=== PATIENT | male | born 1975 | race Caucasian/White ===

== ENCOUNTER 2016-12-11 13:39 | Observation (INO) ==
[2016-12-11] MEDS ORDERED: ASPIRIN PO STA (13:43)
[2016-12-11] MEDS ORDERED: ASPIRIN ONE (13:47)
[2016-12-11 13:58] LABS: MANUAL DIFF NEEDED? NO
--- NOTE | 2016-12-11 14:02 | EKG Report ---
Test Performed on : 12/11/2016 1:45:22 PM Test Reason : CHEST PAIN Blood Pressure : / mmHG Vent. Rate : 081 BPM Atrial Rate : 081 BPM P-R Int : 176 ms QRS Dur : 086 ms QT Int : 376 ms P-R-T Axes : 068 042 063 degrees QTc Int : 436 ms Normal sinus rhythm. Normal ECG When compared with ECG of 01-JUN-2012 10:31, ST no longer elevated in Inferior leads ST no longer elevated in Lateral leads Unconfirmed Result
[2016-12-11 14:06] LABS: BASO% 0.2 % (0.0-0.8); EOS# 0.26 X1000 (0.0-0.7); EOS% 2.9 % (0.0-10.0); HEMATOCRIT 43.3 % (42.0-52.0); HEMOGLOBIN 15.3 g/dL (14.0-18.0); IMM GRAN# 0.03 X1000 (0.0-0.04); IMM GRAN% 0.3 % (0.0-0.5); LYMPH# 3.12 X1000 (1.2-3.4); LYMPH% 35.1 % (20.5-51.1); MCH 29.8 PG (27-31); MCHC 35.3 g/dL (33-37); MCV 84.4 FL (81-99); MONO# 0.55 X1000 (0.11-0.59); MONO% 6.2 % (1.7-9.3); NEUT% 55.3 % (42.2-75.2); PLT 271 X1000 (130-400); RBC 5.13 XMIL (4.7-6.1)
[2016-12-11 14:17] LABS: AGAP 11; ALBUMIN 4.3 g/dL (3.5-5.0); ALKALINE PHOSPHATASE 73 U/L (32-122); BUN 10 mg/dL (8-22); CHLORIDE 100 mmol/L (98-107); CK PROFILE 114 U/L (24-204); COSMO 280; GOT 27 U/L (10-34); GPT 37 U/L (10-44); POTASSIUM 3.7 mmol/L (3.5-5.1); SODIUM 138 mmol/L (136-145); TCO2 27 mmol/L (25-35); TOTAL PROTEIN 7.3 g/dL (6.3-8.3)
[2016-12-11 14:26] LABS: INR 0.97 (0.86-1.15); PROTIME 13.2 Seconds (12.1-15.5)
[2016-12-11 14:27] LABS: PTT PL 27.5 Seconds (22.6-43.9)
--- NOTE | 2016-12-11 14:59 | Diag Imaging Result Document ---
PROCEDURE NAME: CHEST-2 VIEWS - 12/11/2016 CHEST X-RAY 2 VIEWS: COMPARISON: 06/01/2012. FINDINGS: Lung volumes are still rather low. No focal infiltrates, pneumothorax, or pleural effusion. IMPRESSION: No acute disease.
[2016-12-11 15:09] LABS: UR AMPHETAMINES QUAL NONE DETECTED (NONE DETECT); UR BARBITUATES QUAL NONE DETECTED (NONE DETECT); UR BENZODIAZEPIN QUAL NONE DETECTED (NONE DETECT); UR CANNABINOIDS QUAL NONE DETECTED (NONE DETECT); UR COCAINE QUAL NONE DETECTED (NONE DETECT); UR MDMA QUAL NONE DETECTED (NONE DETECT); UR METHADONE QUAL NONE DETECTED (NONE DETECT); UR METHAMPHETAMINE QUAL NONE DETECTED (NONE DETECT); UR OPIATES QUAL NONE DETECTED (NONE DETECT); UR OXYCODONE QUAL NONE DETECTED (NONE DETECT); UR PCP QUAL NONE DETECTED (NONE DETECT); UR TCA QUAL NONE DETECTED (NONE DETECT)
[2016-12-11 15:12] LABS: BILIRUBIN URINE NEGATIVE (NEGATIVE); BLOOD URINE NEGATIVE (NEGATIVE); CLARITY CLEAR (CLEAR); COLOR YELLOW; LEUKOCYTES URINE TRACE (NEGATIVE); NITRITE URINE NEGATIVE (NEGATIVE); PH URINE 6.5; PROTEIN URINE TRACE mg/dL (NEGATIVE); UROBILINOGEN URINE 4+(12 mg/dL)
[2016-12-11 15:13] LABS: URINE CULTURE PL NEEDED? YES; URINE EPITHELIAL CELLS <10 /HPF (<10); URINE SOURCE CLEAN CATCH; URINE WBC <10 /HPF (<10)
[2016-12-11] MEDS ORDERED: ZOFRAN IV ONE (16:03)
[2016-12-11] MEDS ORDERED: MORPHINE IV ONE (16:03)
--- NOTE | 2016-12-11 16:51 | Diag Imaging Result Document ---
PROCEDURE NAME: ANGIOGRAM/PULMONARY ARTERIES - 12/11/2016 CT PULMONARY ANGIOGRAM WITH INTRAVENOUS CONTRAST: A CT dose reduction protocol was used. COMPARISON: 06/01/12 FINDINGS: Axial CT images of the chest were obtained after administering intravenous contrast. Coronal MIP images were generated. There is no pulmonary embolism. There is a small 7 mm left upper lobe pulmonary nodule. Otherwise, the lungs are clear. Heart size is normal with no pericardial effusion. There is diffuse fatty change of the liver. Bony structures are intact. IMPRESSION: 1. Negative for pulmonary embolism. 2. Fatty liver. 3. Small left upper lobe pulmonary nodule. [facility]
--- NOTE | 2016-12-11 17:23 | PROVIDER DOCUMENTATION ---
This chart was entered by Cari Dorsey Scribe, acting as scribe for Flaquita Landin MD. HPI-Chest Pain - General Source: patient, family - History of Present Illness-CP Location: reports: other (l side) Chest Pain Radiation: reports: no radiation Quality of Pain: reports: pressure Severity in ED: mild Onset/Duration: 1-3 hours ago (2 hrs) Timing: still present, intermittent Context/Activities at Onset: reports: light activity Modifying Factors: improves with: nothing Associated Symptoms: reports: shortness of breath. denies: abdominal pain, back pain, diaphoresis, dizziness, edema, fatigue, fever/chills, headache, heartburn, nausea, rash, swelling/lump in chest, syncope, vomiting, weakness Nitro Today/Relief: no nitro taken today Aspirin Treatment Today: no aspirin today Prior Chest Pain/Cardiac Workup: reports: no prior chest pain, no prior cardiac workup Similar Symptoms Previously?: No Recently Seen Here or By Another Healthcare Provider: No <Flaquita Landin - Last Filed: 12/11/16 17:23> - General Source: patient, family - History of Present Illness-CP Location: reports: other (l side) Chest Pain Radiation: reports: no radiation Quality of Pain: reports: pressure Severity in ED: mild Onset/Duration: 1-3 hours ago Timing: still present, intermittent Context/Activities at Onset: reports: light activity Modifying Factors: improves with: nothing Associated Symptoms: reports: shortness of breath. denies: abdominal pain, back pain, diaphoresis, dizziness, edema, fatigue, fever/chills, headache, heartburn, nausea, rash, swelling/lump in chest, syncope, vomiting, weakness Nitro Today/Relief: no nitro taken today Aspirin Treatment Today: no aspirin today Prior Chest Pain/Cardiac Workup: reports: no prior chest pain, no prior cardiac workup Similar Symptoms Previously?: No Recently Seen Here or By Another Healthcare Provider: No <David Payton - Last Filed: 12/11/16 22:58> - General Chief Complaint: Chest Pain Stated Complaint: CHEST PAIN Time Seen by Provider: 12/11/16 14:14 Allergies/Adverse Reactions: Patient Allergies Allergy/AdvReac Type Severity Reaction Status Date / Time No Known Allergies Allergy Verified 11/17/13 13:17 Home Medications: Home Medication List Medication Instructions Recorded Confirmed Last Taken Type No Home Medications 06/01/12 11/17/13 Unknown History - History of Present Illness-CP Nature of Presenting Problem: Pt is 41 y/o M presents to the ED with L side chest pain. Pt states pain started 2 hrs ago. Pt states SOB. Pt states one prior episode of chest pain before that was diagnosed as pericarditis. Pt denies injury. (Cari Dorsey) Pt is 41 y/o M presents to the ED with L side chest pain. Pt states pain started 2 hrs ago. Pt states SOB. Pt states one prior episode of chest pain before that was diagnosed as pericarditis. Pt denies injury. (Flaquita Landin) Review of Systems - Adult - REVIEW OF SYSTEMS - ADULT Constitutional: reports: no symptoms reported Eyes: reports: no symptoms reported Ears, Nose, Mouth & Throat: reports: no symptoms reported Cardiovascular: reports: chest pain (l side). denies: heart murmur, irregular heart rate, orthopnea Respiratory: reports: cough, shortness of breath. denies: wheezing Gastrointestinal: reports: no symptoms reported Genitourinary: reports: no symptoms reported Musculoskeletal: reports: no symptoms reported Integumentary: reports: no symptoms reported Neurological: reports: no symptoms reported Psychiatric: reports: no symptoms reported Endocrine: reports: no symptoms reported Hematologic/Lymphatic: reports: no symptoms reported Allergic/Immunologic: reports: no symptoms reported All Other Systems: Reviewed and Negative <Flaquita Landin - Last Filed: 12/11/16 17:23> - REVIEW OF SYSTEMS - ADULT Constitutional: denies: chills, fever Eyes: reports: no symptoms reported Ears, Nose, Mouth & Throat: reports: no symptoms reported Cardiovascular: reports: chest pain (l side). denies: heart murmur, irregular heart rate, orthopnea Respiratory: reports: cough, shortness of breath. denies: wheezing Gastrointestinal: reports: no symptoms reported Genitourinary: reports: no symptoms reported Musculoskeletal: reports: no symptoms reported Integumentary: reports: no symptoms reported Neurological: reports: no symptoms reported Psychiatric: reports: no symptoms reported Endocrine: reports: no symptoms reported Hematologic/Lymphatic: reports: no symptoms reported Allergic/Immunologic: reports: no symptoms reported All Other Systems: Reviewed and Negative <David Payton - Last Filed: 12/11/16 22:58> Past History - Adult - PAST MEDICAL HISTORY-ADULT Review of Records: reports: Nursing Assessment Review, Medications Reviewed, Social history reviewed & non-contributory. Major Childhood Illnesses: reports: denies history Cardiovascular: reports: denies history Respiratory: reports: denies history Gastrointestinal: reports: denies history Obstetrical/Gynecological: reports: denies history Genitourinary: reports: denies history Musculoskeletal: reports: denies history Neurological: reports: denies history Psychiatric: reports: denies history Endocrine/Immune: reports: denies history Other Conditions: reports: denies history - PRIOR SURGERIES/PROCEDURES Surgical/Procedure History: reports: hernia repair - PRIOR HOSPITALIZATIONS Prior Hospitalizations: reports: none - IMMUNIZATION STATUS Childhood Immunizations: See Nurse Assessment Flu Vaccine: See Nurse Assessment - FAMILY HISTORY Family History: reviewed, not pertinent - SOCIAL HISTORY Smoking: less than 1 pack/day, other (dip) Provider spent 3-5 mins advising pt. on dangers of tobacco.: Discussed manners to quit use, and f/u contacts for add'l counseling. Substance Use: denies Living Situation: family <Flaquita Landin - Last Filed: 12/11/16 17:23> - PAST MEDICAL HISTORY-ADULT Review of Records: reports: Old Records Reviewed, Nursing Assessment Review, Medications Reviewed, Social history reviewed & non-contributory. - SOCIAL HISTORY Smoking: non-smoker Substance Use: denies Living Situation: family <David Payton - Last Filed: 12/11/16 22:58> Physical Exam-General - PHYSICAL EXAM-ADULT Initial Vital Signs Reviewed: Yes - CONSTITUTIONAL General Appearance: appears well, alert, no apparent distress - EYES Eyes: PERRL/EOMI, pink conjunctivae - HEAD, EARS, NOSE, MOUTH & THROAT HENMT: normocephalic/atraumatic, moist mucous membranes, normal ENT inspection, TMs normal, pharynx normal - NECK Neck: non-tender, full range of motion, supple, normal inspection - RESPIRATORY Respiratory: chest non-tender, lungs clear, normal breath sounds, no pleuratic chest pain, no respiratory distress, no accessory muscle use - CARDIOVASCULAR Cardiovascular: normal peripheral pulses, regular rate, rhythm, no edema, no gallop, no JVD, no murmur - GASTROINTESTINAL (ABDOMEN) Abdominal Exam: normal bowel sounds, non tender, soft, no organomegaly, no pulsatile mass - LYMPHATIC Lymphatic: no adenopathy - MUSCULOSKELETAL Back Exam: normal inspection, no CVA tenderness, no vertebral tenderness Extremity: normal range of motion, non-tender, normal gait, normal inspection, no pedal edema, no calf tenderness, normal capillary refill, pelvis stable - SKIN Integumentary: normal color, normal turgor, warm/dry - NEUROLOGIC Neurologic: grossly normal - PSYCHIATRIC Psych/Mental Status: normal mood/affect, oriented x 3 <Flaquita Landin X - Last Filed: 12/11/16 17:23> - PHYSICAL EXAM-ADULT Initial Vital Signs Reviewed: Yes - CONSTITUTIONAL General Appearance: appears well, alert, no apparent distress - EYES Eyes: PERRL/EOMI, pink conjunctivae - HEAD, EARS, NOSE, MOUTH & THROAT HENMT: normocephalic/atraumatic, moist mucous membranes, normal ENT inspection, TMs normal, pharynx normal - NECK Neck: non-tender, full range of motion, supple, normal inspection - RESPIRATORY Respiratory: chest non-tender, lungs clear, normal breath sounds, no pleuratic chest pain, no respiratory distress, no accessory muscle use - CARDIOVASCULAR Cardiovascular: normal peripheral pulses, regular rate, rhythm, no edema, no gallop, no JVD, no murmur - GASTROINTESTINAL (ABDOMEN) Abdominal Exam: normal bowel sounds, non tender, soft, no organomegaly, no pulsatile mass - LYMPHATIC Lymphatic: no adenopathy - MUSCULOSKELETAL Back Exam: normal inspection, no CVA tenderness, no vertebral tenderness Extremity: normal range of motion, non-tender, normal gait, normal inspection, no calf tenderness, normal capillary refill, pelvis stable - SKIN Integumentary: normal color, normal turgor, warm/dry - NEUROLOGIC Neurologic: grossly normal - PSYCHIATRIC Psych/Mental Status: normal mood/affect, oriented x 3 <David Payton - Last Filed: 12/11/16 22:58> Progress - PLAN OF CARE/RESULTS Result Diagrams: 12/11/16 13:51 12/11/16 13:51 - REASSESSMENT Reassessment #1 Time Reassessed: 17:21 Status: improving (Pt reports his pain is better, but still 6/10 when breaths and 3/10 when not breathing. Declined admission, agress to do 3rd set Trop. Care will be turned over to Dr. Payton at 6P.) - EKG 1 Time of EKG reading by physician:: 13:45 EKG Read and Signed by:: Flaquita Landin EKG Interpretation (*Must complete 3 of following elements*): Normal Rate: 81 Rhythm: normal sinus rhythm Comments: normal ECG - XRAY 1 XRAY: Bilateral XRAY Study: Chest Impression: Normal XRAY Interpretation: no acute disease - CT/MRI 1 CT Study: Angiogram Impression: Normal CT Results: NAD; fatty liver - CHANGE OF SHIFT REPORT (ED Provider) Report Given and Care Transferred to:: Dr. Payton Time of Transfer: 18:00 Items Pending: Labs, Other (Dispo) <Flaquita Landin - Last Filed: 12/11/16 17:23> - PLAN OF CARE/RESULTS Result Diagrams: 12/11/16 13:51 12/11/16 13:51 - CONSULTS/PCP/HOSPITALIST Notification #1 *Consult/PCP/Hospitalist*: penot Time Discussed: 22:54 Consult Disposition: Admit (accept) <David Payton - Last Filed: 12/11/16 22:58> - PLAN OF CARE/RESULTS Progress/Plan/Lab Results: Vital Signs - 8 hr 12/11/16 15:15 12/11/16 15:44 12/11/16 16:00 Temperature Pulse Rate 62 66 63 Respiratory Rate 21 21 24 Blood Pressure 161/110 150/108 140/97 O2 Sat by Pulse Oximetry 96 97 95 12/11/16 16:35 12/11/16 17:38 12/11/16 18:52 Temperature Pulse Rate 60 60 52 L Respiratory Rate 19 16 13 Blood Pressure 140/107 129/96 131/93 O2 Sat by Pulse Oximetry 95 96 95 12/11/16 19:50 12/11/16 20:14 12/11/16 20:55 Temperature Pulse Rate 58 L 53 L 52 L Respiratory Rate 16 17 13 Blood Pressure 146/99 133/96 120/88 O2 Sat by Pulse Oximetry 97 98 98 12/11/16 21:33 Temperature 97.2 F L Pulse Rate 52 L Respiratory Rate 18 Blood Pressure 131/81 O2 Sat by Pulse Oximetry 97 Laboratory Results - last 24 hr 12/11/16 12/11/16 12/11/16 13:51 13:51 13:51 WBC RBC Hgb Hct MCV MCH MCHC RDW Std Deviation Plt Count MPV Immature Gran % (Auto) Neut % (Auto) Lymph % (Auto) [place] % (Auto) Eos % (Auto) Baso % (Auto) Immature Gran # (Auto) Neut # (Auto) Lymph # (Auto) Monroe # (Auto) Eos # (Auto) Baso # (Auto) ESR PT INR APTT (Factor Assay) D-Dimer Sodium 138 Potassium 3.7 Chloride 100 Carbon Dioxide 27 Anion Gap 11 BUN 10 Creatinine 0.9 Estimated GFR/1.73 m2 > 60 BUN/Creatinine Ratio 11 Glucose 192 H Calculated Osmolality 280 Calcium 9.0 Magnesium 2.0 Total Bilirubin 1.00 AST 27 ALT 37 Alkaline Phosphatase 73 Creatine Kinase 114 Troponin T < 0.010 C-Reactive Prot, Quant Cww-W-Woxnrfxqrcz Pept 11 Total Protein 7.3 Albumin 4.3 Globulin 3.0 Albumin/Globulin Ratio 1.0 Amylase Lipase Urine Source Urine Color Urine Clarity Urine pH Ur Specific [place] Urine Protein Urine Ketones Urine Blood Urine Nitrite Urine Bilirubin Urine Urobilinogen Urine WBC Urine Microscopic WBC Ur Epithelial Cells Urine Bacteria Urine Glucose Urine Opiates Screen Ur Oxycodone Screen Urine Methadone Screen Ur Barbituates Screen Ur Tricyclics Screen Ur Phencyclidine Scrn Ur Amphetamines Screen U Methamphetamines Scrn Urine MDMA Screen U Benzodiazepines Scrn Urine Cocaine Screen U Cannabinoids Screen 12/11/16 12/11/16 12/11/16 13:51 13:51 14:51 WBC 8.89 RBC 5.13 Hgb 15.3 Hct 43.3 MCV 84.4 MCH 29.8 MCHC 35.3 RDW Std Deviation 13.5 Plt Count 271 MPV 10.0 Immature Gran % (Auto) 0.3 Neut % (Auto) 55.3 Lymph % (Auto) 35.1 Monroe % (Auto) 6.2 Eos % (Auto) 2.9 Baso % (Auto) 0.2 Immature Gran # (Auto) 0.03 Neut # (Auto) 4.91 Lymph # (Auto) 3.12 Monroe # (Auto) 0.55 Eos # (Auto) 0.26 Baso # (Auto) 0.02 ESR PT 13.2 INR 0.97 APTT (Factor Assay) 27.5 D-Dimer 0.26 Sodium Potassium Chloride Carbon Dioxide Anion Gap BUN Creatinine Estimated GFR/1.73 m2 BUN/Creatinine Ratio Glucose Calculated Osmolality Calcium Magnesium Total Bilirubin AST ALT Alkaline Phosphatase Creatine Kinase Troponin T C-Reactive Prot, Quant 6.76 H Vac-C-Ryyyzejapxh Pept Total Protein Albumin Globulin Albumin/Globulin Ratio Amylase Lipase Urine Source Urine Color Urine Clarity Urine pH Ur Specific [place] Urine Protein Urine Ketones Urine Blood Urine Nitrite Urine Bilirubin Urine Urobilinogen Urine WBC Urine Microscopic WBC Ur Epithelial Cells Urine Bacteria Urine Glucose Urine Opiates Screen Ur Oxycodone Screen Urine Methadone Screen Ur Barbituates Screen Ur Tricyclics Screen Ur Phencyclidine Scrn Ur Amphetamines Screen U Methamphetamines Scrn Urine MDMA Screen U Benzodiazepines Scrn Urine Cocaine Screen U Cannabinoids Screen 12/11/16 12/11/16 12/11/16 14:51 14:51 14:51 WBC RBC Hgb Hct MCV MCH MCHC RDW Std Deviation Plt Count MPV Immature Gran % (Auto) Neut % (Auto) Lymph % (Auto) Monroe % (Auto) Eos % (Auto) Baso % (Auto) Immature Gran # (Auto) Neut # (Auto) Lymph # (Auto) [place] # (Auto) Eos # (Auto) Baso # (Auto) ESR 37 H PT INR APTT (Factor Assay) D-Dimer Sodium Potassium Chloride Carbon Dioxide Anion Gap BUN Creatinine Estimated GFR/1.73 m2 BUN/Creatinine Ratio Glucose Calculated Osmolality Calcium Magnesium Total Bilirubin AST ALT Alkaline Phosphatase Creatine Kinase Troponin T C-Reactive Prot, Quant Hju-I-Euxgtrngecg Pept Total Protein Albumin Globulin Albumin/Globulin Ratio Amylase Lipase Urine Source CLEAN CATCH Urine Color YELLOW Urine Clarity CLEAR Urine pH 6.5 Ur Specific [place] 1.020 Urine Protein TRACE A Urine Ketones NEGATIVE Urine Blood NEGATIVE Urine Nitrite NEGATIVE Urine Bilirubin NEGATIVE Urine Urobilinogen 4+(12 mg/dL) Urine WBC TRACE A Urine Microscopic WBC <10 Ur Epithelial Cells <10 Urine Bacteria 2+ Urine Glucose TRACE(50 mg/dL) A Urine Opiates Screen NONE DETECTED Ur Oxycodone Screen NONE DETECTED Urine Methadone Screen NONE DETECTED Ur Barbituates Screen NONE DETECTED Ur Tricyclics Screen NONE DETECTED Ur Phencyclidine Scrn NONE DETECTED Ur Amphetamines Screen NONE DETECTED U Methamphetamines Scrn NONE DETECTED Urine MDMA Screen NONE DETECTED U Benzodiazepines Scrn NONE DETECTED Urine Cocaine Screen NONE DETECTED U Cannabinoids Screen NONE DETECTED 12/11/16 12/11/16 12/11/16 16:00 16:00 20:05 WBC RBC Hgb Hct MCV MCH MCHC RDW Std Deviation Plt Count MPV Immature Gran % (Auto) Neut % (Auto) Lymph % (Auto) [place] % (Auto) Eos % (Auto) Baso % (Auto) Immature Gran # (Auto) Neut # (Auto) Lymph # (Auto) [place] # (Auto) Eos # (Auto) Baso # (Auto) ESR PT INR APTT (Factor Assay) D-Dimer Sodium Potassium Chloride Carbon Dioxide Anion Gap BUN Creatinine Estimated GFR/1.73 m2 BUN/Creatinine Ratio Glucose Calculated Osmolality Calcium Magnesium Total Bilirubin AST ALT Alkaline Phosphatase Creatine Kinase 97 89 Troponin T < 0.010 C-Reactive Prot, Quant Qwl-K-Mvvjyhephxr Pept Total Protein Albumin Globulin Albumin/Globulin Ratio Amylase Lipase Urine Source Urine Color Urine Clarity Urine pH Ur Specific [place] Urine Protein Urine Ketones Urine Blood Urine Nitrite Urine Bilirubin Urine Urobilinogen Urine WBC Urine Microscopic WBC Ur Epithelial Cells Urine Bacteria Urine Glucose Urine Opiates Screen Ur Oxycodone Screen Urine Methadone Screen Ur Barbituates Screen Ur Tricyclics Screen Ur Phencyclidine Scrn Ur Amphetamines Screen U Methamphetamines Scrn Urine MDMA Screen U Benzodiazepines Scrn Urine Cocaine Screen U Cannabinoids Screen 12/11/16 12/11/16 20:05 20:05 WBC RBC Hgb Hct MCV MCH MCHC RDW Std Deviation Plt Count MPV Immature Gran % (Auto) Neut % (Auto) Lymph % (Auto) [place] % (Auto) Eos % (Auto) Baso % (Auto) Immature Gran # (Auto) Neut # (Auto) Lymph # (Auto) [place] # (Auto) Eos # (Auto) Baso # (Auto) ESR PT INR APTT (Factor Assay) D-Dimer Sodium Potassium Chloride Carbon Dioxide Anion Gap BUN Creatinine Estimated GFR/1.73 m2 BUN/Creatinine Ratio Glucose Calculated Osmolality Calcium Magnesium Total Bilirubin AST ALT Alkaline Phosphatase Creatine Kinase Troponin T < 0.010 C-Reactive Prot, Quant Vla-A-Pgesdcazxzr Pept Total Protein Albumin Globulin Albumin/Globulin Ratio Amylase 41 Lipase 23 Urine Source Urine Color Urine Clarity Urine pH Ur Specific [place] Urine Protein Urine Ketones Urine Blood Urine Nitrite Urine Bilirubin Urine Urobilinogen Urine WBC Urine Microscopic WBC Ur Epithelial Cells Urine Bacteria Urine Glucose Urine Opiates Screen Ur Oxycodone Screen Urine Methadone Screen Ur Barbituates Screen Ur Tricyclics Screen Ur Phencyclidine Scrn Ur Amphetamines Screen U Methamphetamines Scrn Urine MDMA Screen U Benzodiazepines Scrn Urine Cocaine Screen U Cannabinoids Screen Orders Category Date Time Status Admit - [facility] Routine AdmDCTranf 12/11/16 22:48 Ordered Activity - Up Ad Deann ORDERED Care 12/11/16 22:48 Active Cardiac Monitoring DIRECTED Care 12/11/16 13:44 Active Oxygen Therapy- ED Nursing DIRECTED Care 12/11/16 13:44 Active Saline Loc NOW Care 12/11/16 13:44 Active Vital Signs Order Q 8-HR .ASSESS Care 12/11/16 22:48 Active NPO Diet 12/11/16 22:50 Active ANGIOGRAM/PULMONARY ARTERIES [CT] Stat Exams 12/11/16 16:03 Draft CHEST-2 VIEWS [RAD] Stat Exams 12/11/16 13:44 Draft MYOCARDIAL PERF SCAN, STR/REST [NM] Stat Exams 12/11/16 22:48 Ordered US GB < RUQ (LIMITED) [US] Stat Exams 12/11/16 22:48 Ordered AMYLASE [CHEM] Stat Lab 12/11/16 20:05 Completed CBC WITH ELECTRONIC DIFF [HEME] Stat Lab 12/11/16 13:51 Completed CK PROFILE [SP CHEM] Stat Lab 12/11/16 13:51 Completed CK PROFILE [SP CHEM] Stat Lab 12/11/16 16:00 Completed CK PROFILE [SP CHEM] Stat Lab 12/11/16 20:05 Completed COMPREHENSIVE METABOLIC PANEL [CHEM] Stat Lab 12/11/16 13:51 Completed CRP [C REACTIVE PROT QUANT] [CHEM] Stat Lab 12/11/16 14:51 Completed D-DIMER PL [COAG] Stat Lab 12/11/16 13:51 Completed LIPASE [CHEM] Stat Lab 12/11/16 20:05 Completed MAGNESIUM [CHEM] Stat Lab 12/11/16 13:51 Completed PRO B-NATRIURETIC PEPTIDE Stat Lab 12/11/16 13:51 Completed PROTIME WITH INR PL [COAG] Stat Lab 12/11/16 13:[address] [COAG] Stat Lab 12/11/16 13:51 Completed SED RATE [HEME] Stat Lab 12/11/16 14:51 Completed TROPONIN T Stat Lab 12/11/16 13:51 Completed TROPONIN T Stat Lab 12/11/16 16:00 Completed TROPONIN T Stat Lab 12/11/16 20:05 Completed UDS [URINE DRUG SCREEN PL] Stat Lab 12/11/16 14:[address] W/POSS RFLX CULT [URINALYSIS] Stat Lab 12/11/16 14:51 Completed URINE CULTURE [RM] Routine Lab 12/11/16 15:13 Received 0.9% Sodium Chloride Inj [Ns] 1,000 ml Med 12/11/16 22:48 Active IV 100 mls/hr Aspirin Med 12/11/16 13:47 Discontinued 325 mg .ROUTE .STK-MED ONE Aspirin Med 12/11/16 13:43 Discontinued 325 mg PO STAT STA Lido/Caruso Alk/Al&mg Hydrox [G.i. Cocktail] Med 12/11/16 20:02 Discontinued 30 ml PO NOW ONE Morphine Med 12/11/16 16:03 Discontinued 4 mg IV NOW ONE Ondansetron [Zofran] Med 12/11/16 16:03 Discontinued 4 mg IV NOW ONE Zolpidem [Ambien] Med 12/11/16 22:48 Discontinued 5 mg PO NOW ONE Telemetry [OM.EQ] Routine Oth 12/11/16 22:48 Active EKG [EKG] Stat Ther 12/11/16 13:44 Draft EKG [EKG] Timed Ther 12/11/16 20:00 Draft Transfer/Admit Order [TRANSFER] Routine Transfer 12/11/16 22:52 Ordered Departure <Flaquita Landin - Last Filed: 12/11/16 17:23> - Departure Time of Disposition Decision: 22:55 Certified Medical Emergency: Emergent - Critical Care Note This patient required my direct personal management.: No <David Payton - Last Filed: 12/11/16 22:58> - Departure DIAGNOSIS: Chest pain Qualifiers: Chest pain type: unspecified Qualified Code(s): R07.9 - Chest pain, unspecified Disposition: ADMITTED INPATIENT 09 Condition: Stable Referrals and Follow-Ups: None,PCP [Primary Care Provider] - This chart was documented by the indicated scribe, (Cari Dorsey Scribe) and accurately reflects the services I performed and decisions made by me, Flaquita Landin MD, as attested by the provider's signature.
[2016-12-11] MEDS ORDERED: G.I. COCKTAIL PO ONE (20:02)
--- NOTE | 2016-12-11 20:22 | EKG Report ---
Test Performed on : 12/11/2016 8:12:25 PM Test Reason : Repeat Blood Pressure : / mmHG Vent. Rate : 042 BPM Atrial Rate : 042 BPM P-R Int : 182 ms QRS Dur : 084 ms QT Int : 460 ms P-R-T Axes : 040 005 026 degrees QTc Int : 384 ms Marked sinus bradycardia. Abnormal ECG When compared with ECG of 11-DEC-2016 13:45, (Unconfirmed) Vent. rate has decreased BY 39 BPM Unconfirmed Result
[2016-12-11 22:28] LABS: AMYLASE 41 U/L (20-200); LIPASE 23 U/L (13-60)
[2016-12-11] MEDS ORDERED: AMBIEN PO ONE (22:48)
[2016-12-11] MEDS ORDERED: NS 1,000 ML IV ONE (22:48)
--- NOTE | 2016-12-11 22:53 | ED EKG INTERP ---
This chart was entered by Samantha Kennedy Scribe, acting as scribe for David Payton MD. EKG Interpretation - EKG Time of EKG reading by physician:: 20:12 EKG Read and Signed by:: David Payton EKG Interpretation (*Must complete 3 of following elements*): Abnormal Rate: 42 Rhythm: Marked sinus bradycardia Comments: Abnormal ECG Attestation - Physician/ ISABEL Attestation Patient care was provided by Advanced Practice Provider:: No This chart was documented by the indicated scribe, (Samantha Kennedy Scribe) and accurately reflects the services I performed and decisions made by me, David Payton MD, as attested by the provider's signature.
--- NOTE | 2016-12-12 09:36 | Diag Imaging Result Document ---
PROCEDURE NAME: US ABDOMEN-COMPLETE - 12/12/2016 COMPLETE ABDOMINAL ULTRASOUND: COMPARISON: None available. FINDINGS: The gallbladder appears normal with no stones, wall thickening, or pericholecystic fluid. The common bile duct is normal in diameter. Sonographic Linn's sign was reported to be negative. Much of the pancreas is obscured by bowel gas. The visualized portion is unremarkable. Much of the aorta and IVC are also obscured. The visualized portions are unremarkable. There is diffusely increased hepatic echotexture compatible with hepatic steatosis. No discrete hepatic mass is identified. Portal venous flow is hepatopetal. The spleen is mildly prominent measuring up to 14.3 cm in the greatest dimension. The kidneys are grossly unremarkable. IMPRESSION: 1. Hepatic steatosis. 2. Very mildly prominent spleen.
[2016-12-12] MEDS ORDERED: NS 1,000 ML IV SCH (10:51)
[2016-12-12 11:40] LABS: HEMOGLOBIN A1C 6.3 % (4.8-6.0)
--- NOTE | 2016-12-12 11:59 | HISTORY AND PHYSICAL ---
PRIMARY CARE PHYSICIAN: None. CHIEF COMPLAINT: Left-sided chest pain that began 2 hours prior to arrival. HISTORY OF PRESENT ILLNESS: This is a 41-year-old male who presented to [facility] with complaints of left-sided chest pain that began approximately 2 hours prior to arrival. He states that he was having some mild shortness of breath and tingling in his bilateral hands. He states that approximately 2 years ago he had an episode of chest pain and was diagnosed with pericarditis. In the Emergency Room his blood pressure was 162/96 with a pulse of 84 on arrival. His laboratory data showed a D-dimer of 0.26. Cardiac enzymes times 3 sets were negative. Blood sugar was mildly elevated at 192. We did a chest x- ray that showed no acute disease and a pulmonary arteriogram that showed no pulmonary emboli and a fatty liver. We also did an abdominal ultrasound that showed hepatic steatosis and a very mildly prominent spleen. He was admitted for further evaluation and treatment. PAST MEDICAL HISTORY: Pericarditis. PAST SURGICAL HISTORY: Hernia repair when he was 2 weeks old. FAMILY HISTORY: Noncontributory. SOCIAL HISTORY: He currently lives with his family. He dips one can of tobacco daily and has done so since he was 6-years-old. He denied any alcohol or illicit drug use. ALLERGIES: He has no known drug allergies. HOME MEDICATIONS: He does not take any medications on a routine basis. LABORATORY DATA: He has a white blood cell count of 8.89, hemoglobin 15.3, hematocrit 43.3, and platelets 271. He had an ESR of 37. PT and INR of 13.2 and 0.97 with a D- dimer of 0.26. Sodium of 138, potassium 3.7, chloride 100, CO2 27, BUN 10, creatinine 0.9, glucose 192 , magnesium 2, AST 27, ALT 37, and alkaline phosphatase 74. Cardiac enzymes times 3 sets was negative. C-reactive protein was 6.76. ProBNP of 11. Amylase of 41 and lipase 23. Urinalysis was negative. Urine drug screen was negative. Chest x-ray showed no acute disease. Pulmonary arteriogram showed no pulmonary emboli and a fatty liver. Abdomen ultrasound showed hepatic steatosis and a very mildly prominent spleen. EKG showed normal sinus rhythm at 81. REVIEW OF SYSTEMS: He denied any fever, chills, blurred vision, or dizziness. He was positive for left-sided chest pain and some mild shortness of breath and bilateral tingling in his hands. He denied any cough, abdominal pain, constipation, diarrhea, or burning or hurting with urination. PHYSICAL EXAMINATION: VITAL SIGNS: On arrival he had a temperature of 98, pulse 84, respirations 22 , and blood pressure 162/96. His blood pressuring during the night was elevated and got as high as 160/110. This a.m. temperature is 98.1, pulse 49, respirations 18, blood pressure 120/68 , and he is sating 96% on room air. GENERAL: This is a 41-year-old, morbidly obese, male who is lying in the bed. He answers questions appropriately. HEENT: Normocephalic and atraumatic. Pupils are equal, round, and reactive to light. The extraocular movements are intact. The oropharynx and nares are clear. NECK: Supple. LUNGS: Clear to auscultation bilaterally with equal lung expansion and chest wall movement. HEART: Regular rate and rhythm. No murmurs, rubs, or gallops. ABDOMEN: Soft, nontender, and nondistended. Bowel sounds are present times 4 quadrants. EXTREMITIES: There is no clubbing, cyanosis, or edema. NEUROLOGICAL: The cranial nerves 2 through 12 appear grossly intact. ASSESSMENT: 1. Chest pain. 2. Hypertension. 3. Tobacco abuse. 4. Some mild hyperglycemia. PLAN: He was admitted to the Medical Unit at [facility], placed on telemetry, held n.p.o., and will have a myocardial perfusion scan this a.m.. We are going to check a hemoglobin A1c. His blood pressure is now down so it was most likely related to his event but he is also noted to have a little bradycardia. We will await the results of this myocardial perfusion scan for further orders at this time. Dictated by PRIMO Trevizo for Lex Reilly MD cc: PRIMO Trevizo MD pt examined, agree with above APENOT MTDD
--- NOTE | 2016-12-12 13:42 | GRADED EXERCISE REPORT ---
DATE: 12/12/2016 INDICATIONS: Chest pain. ORDERING PHYSICIAN: Dr. Payton. Patient underwent GXT per modified Yovani protocol. Baseline EKG showed normal sinus rhythm. No axis deviation. No ST changes. Baseline heart rate 57, baseline blood pressure 136/91. With exercise he did develop frequent PVCs. He did reach 85% of predicted heart rate. But prior to that within a minute or 2 of the test he was starting to have chest pain that had been similar to his previous chest pain with frequent ectopy. He did have some ST depression particularly in V3 through V5 with sinus tachycardia. The patient recovered without difficulty. Did not have greater than a mm change though according to the machine interpretation however felt test was clinically positive, electrically negative although had frequent PVCs and less than a mm ST changes. Myocardial perfusion imaging will be reported separately. cc: Lex Reilly MD
--- NOTE | 2016-12-12 13:55 | EKG Report ---
Test Performed on : 12/12/2016 1:30:24 PM Test Reason : cp Blood Pressure : / mmHG Vent. Rate : 075 BPM Atrial Rate : 075 BPM P-R Int : 164 ms QRS Dur : 082 ms QT Int : 388 ms P-R-T Axes : 074 052 073 degrees QTc Int : 433 ms Normal sinus rhythm. Normal ECG When compared with ECG of 11-DEC-2016 20:12, (Unconfirmed) Vent. rate has increased BY 33 BPM Confirmed by David Payton MD ([id number]) on 12/17/2016 4:55:28 AM
[2016-12-12 15:31] VITALS: BP 132/80
--- NOTE | 2016-12-12 15:42 | Diag Imaging Result Document ---
PROCEDURE NAME: MYOCARDIAL PERF SCAN, STR/REST - 12/12/2016 PROCEDURE: Myocardial perfusion scan. DATE OF STUDY: 12/12/2016. INDICATION: Chest pain. PROCEDURES PERFORMED: 1. Yovani protocol stress (results dictated separately). 2. One-day stress/rest myocardial perfusion imaging. PROCEDURE IN DETAIL: Mr. Maier was brought to the nuclear laboratory and had a resting study with injection of 16.4 mCi of technetium-99m sestamibi with the usual imaging protocol utilized. He subsequently was brought back and had a Yovani protocol stress and, at peak stress, was injected with 44.2 mCi of technetium-99m sestamibi with the usual imaging protocol utilized. FINDINGS: 1. There is evidence of abnormal extracardiac uptake, which appears to be in the right upper extremity corresponding with the injection site. 2. TID ratio 1.08. 3. Perfusion imaging seems to demonstrate normal homogeneous uptake of radiotracer throughout the myocardial segments. No evidence of stress-related defects. 4. There is a normal ejection fraction of 69%. End-diastolic volume of 141, end-systolic volume 44. Normal wall motion noted. cc: MD David Diallo MD
--- NOTE | 2016-12-13 14:29 | DISCHARGE SUMMARY ---
ADMISSION DATE: 12/11/2016 DISCHARGE DATE: 12/12/2016 PRIMARY CARE PHYSICIAN: None. ADMISSION DIAGNOSES: 1. Chest pain. 2. Hypertension. 3. Tobacco abuse. 4. Mild hyperglycemia. DISCHARGE DIAGNOSES: 1. Chest pain, resolved. 2. Hypertension. 3. Tobacco abuse. 4. Mild hyperglycemia SUMMARY OF FINDINGS: This is a 41-year-old male, who presented with left-sided chest pain that began approximately 2 hours prior to arrival with some mild shortness of breath, tingling in his hands and approximately 2 years ago he had a chest pain episode and was diagnosed with pericarditis. In the emergency room, his blood pressure was elevated at 162/96. His blood sugar was mildly elevated with a nonfasting at 192. We checked a hemoglobin A1c and it was 6.3. He had a myocardial perfusion scan today that was read as normal. He had an abdominal ultrasound that showed hepatic steatosis and a very mild prominent spleen. Pulmonary arteriogram showed no evidence of an acute pulmonary emboli, so it is felt that he can safely be discharged home. I did discuss with him the need to obtain a primary care physician that he is considered borderline diabetes and that he needed to limit his carbohydrates, i.e. breads, potatoes and pasta along with sweets. He needed to try to stay between 1800 and 2000 calories a day and exercise such as walking 3 times a week for 30 minutes. He verbalized understanding. We will also make a referral for him to Dr. Fay for an EGD as he states that he has heartburn and reflux on a daily basis but other than that he can be discharged home. I did give him a prescription for Prilosec 40 mg 1 p.o. daily. Again, follow up. He will follow up with the physician referral line to obtain a primary care and then see Dr. Fay. TIME SPENT ON DISCHARGE: 35 minutes. Dictated by PRIMO Trevizo for Lex Reilly MD cc: PRIMO Trevizo MD
== END 2016-12-12 17:52 | disposition home or self-care (01) ==
LOC: P.ED 13:39 → P.MEDSURG 13:39
PROVIDERS: ATTEND Internal Medicine